=== PATIENT | male | born 1985 | race Caucasian/White ===

== ENCOUNTER → 2020-01-14 | Outpatient (REF) | payer BC ==
[2020-01-14 15:43] LABS: EOS # 0.1 10^3/uL (0.0-0.5); EOS % 1.3 % (0.0-3.0); HEMATOCRIT 37.6 % (42.0-52.0); LYMPH # 1.7 10^3/uL (1.5-5.0); LYMPH % 43.2 % (24.0-44.0); MEAN CORPUSCULAR HEMOGLOBIN 31.4 pg (27.0-33.0); MEAN CORPUSCULAR HGB CONC 34.6 g/dl (32.0-36.5); MEAN CORPUSCULAR VOLUME 90.8 fl (80.0-96.0); MONO # 0.3 10^3/uL (0.0-0.8); MONO % 6.9 % (0.0-5.0); NEUTROPHILS # 1.8 10^3/uL (1.5-8.5); NEUTROPHILS % 47.1 % (36.0-66.0); PLATELET COUNT, AUTOMATED 218 10^3/uL (150-450); RED BLOOD COUNT 4.14 10^6/uL (4.30-6.10); WHITE BLOOD COUNT 3.9 10^3/uL (4.0-10.0)
[2020-01-14 16:09] LABS: ALBUMIN 4.1 GM/DL (3.2-5.2); ALT/SGPT 24 U/L (12-78); BILIRUBIN,TOTAL 0.9 MG/DL (0.2-1.0); BLOOD UREA NITROGEN 10 MG/DL (7-18); CALCIUM LEVEL 8.7 MG/DL (8.5-10.1); CARBON DIOXIDE LEVEL 28 MEQ/L (21-32); CHLORIDE LEVEL 106 MEQ/L (98-107); CREATININE FOR GFR 0.81 MG/DL (0.70-1.30); GLOMERULAR FILTRATION RATE > 60.0 (>60); GLUCOSE, FASTING 77 MG/DL (70-100); SODIUM LEVEL 137 MEQ/L (136-145); TOTAL PROTEIN 7.3 GM/DL (6.4-8.2)
[2020-01-14 16:14] LABS: ERYTHROCYTE SEDIMENTATION RATE 5 mm/hr (0-15)
[2020-01-14 16:15] LABS: TOTAL 25(OH) VITAMIN D 22.8 NG/ML (30.0-100.0)
== END ==
LOC: M SFHCPLAZ 14:16
PROVIDERS: ATTEND Nurse Practitioner Family
DX: G43.009 Migraine without aura, not intractable, without status migrainosus (principal); E55.9 Vitamin D deficiency, unspecified

== ENCOUNTER → 2020-01-19 | Outpatient (CLI) | payer BC ==
[2020-01-19 12:20] LABS: CHOLESTEROL RISK RATIO 3.684 (<5)
[2020-01-19 12:28] LABS: HEMOGLOBIN A1c 4.4 %
== END ==
LOC: M WUC 09:10
PROVIDERS: ATTEND Nurse Practitioner Family
DX: Z13.220 Encounter for screening for lipoid disorders (principal); Z83.3 Family history of diabetes mellitus

== ENCOUNTER → 2021-07-15 | Outpatient (CLI) | payer BC | LOC: M LABSMTC 10:43 | PROVIDERS: ATTEND Pediatrics | DX: Z20.822 Contact with and (suspected) exposure to COVID-19 (principal) | CPT/HCPCS: C9803; U0003 ==